=== PATIENT | female | born 1975 | race African-American/Black ===

== ENCOUNTER 2019-06-28 08:18 | Emergency (ER) | payer SELFPAY ==
[~2019-06-28] VITALS: Ht 149.9 cm; Wt 112.9 kg
[2019-06-28 08:39] VITALS: BP 127/81
[2019-06-28 08:43] LABS: BILIRUBIN,URINE NEGATIVE (NEG); CLARITY,URINE CLEAR; COLOR,URINE YELLOW; NITRITE,URINE NEGATIVE (NEG); PROTEIN,URINE NEGATIVE (NEG-TRACE)
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
[2019-06-28 08:54] LABS: BACTERIA,URINE MODERATE /HPF (0-FEW); SQUAMOUS EPITHELIAL CELL,UR MANY /LPF; WBC,URINE 20-40 /HPF (0-4)
[2019-06-28 08:55] LABS: RBC,URINE OCC /HPF (0-2)
[2019-06-28] MEDS ORDERED: CEPH-264 PO (09:00)
== END 2019-06-28 09:07 | disposition home or self-care (01) ==
LOC: ER 08:18
DX: N30.00 Acute cystitis without hematuria (principal); R50.9 Fever, unspecified; V43.62XA Car passenger injured in collision with other type car in traffic accident, initial encounter; Y93.89 Activity, other specified; Y92.410 Unspecified street and highway as the place of occurrence of the external cause; Y99.8 Other external cause status
CPT/HCPCS: 81001; 81025; 87086; 99284